=== PATIENT | female | born 1970 | race Caucasian/White ===

== ENCOUNTER 2017-09-18 21:25 | Emergency (ER) | payer OTHER ==
[2017-09-18 22:32] LABS: ADD MAN DIFF? NO
[2017-09-18 22:33] LABS: WHITE BLOOD COUNT 10.8 10^3/ul (4.8-10.8)
[2017-09-18 22:33] LABS: BASOPHIL # 0.1 10^3/ul (0.0-0.1); BASOPHILS % 0.5 % (0.0-2.0); EOSINOPHILS # 0.2 10^3/ul (0.0-0.5); EOSINOPHILS % 1.6 % (0.0-7.0); HEMATOCRIT 36.7 % (37.0-47.0); HEMOGLOBIN 11.6 g/dl (12.0-16.0); LYMPHOCYTES # 4.3 10^3/ul (0.8-2.9); LYMPHOCYTES % 39.2 % (15.0-51.0); MEAN CORPUSCULAR HEMOGLOBIN 25.6 pg (29.0-33.0); MEAN CORPUSCULAR HGB CONC 31.6 g/dl (32.0-37.0); MEAN CORPUSCULAR VOLUME 80.8 fl (82.0-101.0); MEAN PLATELET VOLUME 10.1 fl (7.4-10.4); MONOCYTE # 0.8 10^3/ul (0.3-0.9); MONOCYTES % 7.7 % (0.0-11.0); NEUTROPHIL # 5.5 10^3/ul (1.6-7.5); NEUTROPHILS % 50.8 % (39.0-77.0); PLATELET COUNT 293 10^3/UL (140-415); RED BLOOD COUNT 4.54 10^6/ul (4.20-5.40); RED CELL DISTRIBUTION WIDTH 14.6 % (11.5-14.5)
[2017-09-18] MEDS: ACETAMINOPHEN 500 MG TAB PO (22:35)
[2017-09-18 22:56] LABS: ALANINE AMINOTRANSFERASE 18 IU/L (13-69); ALBUMIN 4.4 g/dl (3.3-4.9); ALBUMIN/GLOBULIN RATIO 1.18; ALKALINE PHOSPHATASE 61 IU/L (42-121); ANION GAP 14 (8-16); ASPARTATE AMINO TRANSFERASE 18 IU/L (15-46); BILIRUBIN,INDIRECT 0.5 mg/dl (0-1.1); BILIRUBIN,TOTAL 0.5 mg/dl (0.2-1.3); BLOOD UREA NITROGEN 11 mg/dl (7-20); CALCIUM 9.4 mg/dl (8.4-10.2); CARBON DIOXIDE 29 mmol/L (21-31); CHLORIDE 104 mmol/L (97-110); CREATININE 0.55 mg/dl (0.44-1.00); GLUCOSE 131 mg/dl (70-220); POTASSIUM 3.2 mmol/L (3.5-5.1); SODIUM 144 mmol/L (135-144); TOTAL PROTEIN 8.1 g/dl (6.1-8.1)
== END 2017-09-19 00:47 | disposition home or self-care (01) ==
LOC: E/R 09-19 00:47
DX: I16.0 Hypertensive urgency (principal); I10 Essential (primary) hypertension
CPT/HCPCS: 36415; 70450; 80053; 85025; 99284-25

== ENCOUNTER 2018-08-10 16:20 | Emergency (ER) | payer SELFPAY, OTHER | END 2018-08-10 17:45 | disposition left against medical advice (07) | LOC: E/R 16:20 | DX: Z53.21 Procedure and treatment not carried out due to patient leaving prior to being seen by health care provider (principal) ==

== ENCOUNTER 2018-09-03 18:11 | Inpatient (IN) | payer OTHER ==
[2018-09-03] MEDS: ONDANSETRON 4 MG INJ IV ×2 (19:53→21:11)
[2018-09-03] MEDS: morphine 4 MG/ML VIAL IV (19:54)
[2018-09-03] MEDS: SOD CHLORIDE 0.9% 1,000 ML IV ×2 (19:54→23:09)
[2018-09-03 20:04] LABS: ADD MAN DIFF? NO
[2018-09-03 20:08] LABS: ADD UMIC YES; UR ASCORBIC ACID NEGATIVE (NEGATIVE); UR BILIRUBIN (Dip) NEGATIVE (NEGATIVE); UR BLOOD (Dip) 1+ mg/dL (NEGATIVE); UR CLARITY CLEAR (CLEAR); UR COLOR STRAW (YELLOW); UR GLUCOSE (Dip) NEGATIVE (NEGATIVE); UR KETONES (Dip) NEGATIVE (NEGATIVE); UR LEUKOCYTE ESTERASE (Dip) NEGATIVE Leu/ul (NEGATIVE); UR NITRITE (Dip) NEGATIVE (NEGATIVE); UR RBC 1 /HPF (0-5); UR SPECIFIC GRAVITY (Dip) 1.006 (1.003-1.030); UR SQUAMOUS EPITHELIAL CELL FEW /HPF (FEW); UR TOTAL PROTEIN (Dip) NEGATIVE (NEGATIVE); UR UROBILINOGEN (Dip) NEGATIVE (NEGATIVE); UR WBC 3 /HPF (0-5)
[2018-09-03 20:11] LABS: ABNORMAL IP MESSAGE 1; BASOPHIL # 0.1 10^3/ul (0.0-0.1); BASOPHILS % 0.5 % (0.0-2.0); EOSINOPHILS # 0.2 10^3/ul (0.0-0.5); EOSINOPHILS % 1.1 % (0.0-7.0); HEMATOCRIT 36.9 % (37.0-47.0); HEMOGLOBIN 11.8 g/dl (12.0-16.0); LYMPHOCYTES # 5.1 10^3/ul (0.8-2.9); LYMPHOCYTES % 34.6 % (15.0-51.0); MEAN CORPUSCULAR HEMOGLOBIN 27.3 pg (29.0-33.0); MEAN CORPUSCULAR VOLUME 85.2 fl (82.0-101.0); MEAN PLATELET VOLUME 9.7 fl (7.4-10.4); MONOCYTE # 0.9 10^3/ul (0.3-0.9); MONOCYTES % 6.2 % (0.0-11.0); NEUTROPHIL # 8.5 10^3/ul (1.6-7.5); NEUTROPHILS % 57.3 % (39.0-77.0); PLATELET COUNT 278 10^3/UL (140-415); RED BLOOD COUNT 4.33 10^6/ul (4.20-5.40); RED CELL DISTRIBUTION WIDTH 13.2 % (11.5-14.5)
[2018-09-03 20:11] LABS: WHITE BLOOD COUNT 14.8 10^3/ul (4.8-10.8)
[2018-09-03 20:13] LABS: POSITIVE DIFF @See below
[2018-09-03 20:26] LABS: ALANINE AMINOTRANSFERASE 25 IU/L (13-69); ALBUMIN 4.3 g/dl (3.3-4.9); ALBUMIN/GLOBULIN RATIO 1.22; ALKALINE PHOSPHATASE 57 IU/L (42-121); ANION GAP 8 (5-13); ASPARTATE AMINO TRANSFERASE 24 IU/L (15-46); BILIRUBIN,INDIRECT 0.6 mg/dl (0-1.1); BILIRUBIN,TOTAL 0.6 mg/dl (0.2-1.3); BLOOD UREA NITROGEN 14 mg/dl (7-20); CALCIUM 9.6 mg/dl (8.4-10.2); CARBON DIOXIDE 28 mmol/L (21-31); CHLORIDE 104 mmol/L (97-110); CREATININE 0.96 mg/dl (0.44-1.00); Estimated GFR > 60 mL/min (>60); GLUCOSE 108 mg/dl (70-220); LIPASE 77 U/L (23-300); POTASSIUM 3.5 mmol/L (3.5-5.1); SODIUM 140 mmol/L (135-144); TOTAL PROTEIN 7.8 g/dl (6.1-8.1)
[2018-09-03] MEDS: KETOROLAC 30 MG INJ IV (22:15)
[2018-09-03] MEDS: LORAZEPAM 2 MG INJ IV (22:15)
[2018-09-03] MEDS ORDERED: ONDANSETRON 4 MG INJ IV (23:00)
[2018-09-03] MEDS ORDERED: NACL 0.9% 3 ML SYG IV (23:00)
[2018-09-03] MEDS ORDERED: ACETAMINOPHEN 325 MG TAB PO (23:00)
[2018-09-03] MEDS: CIPROFLOXACIN 400MG/D5W 200 ML IVPB (23:08)
[2018-09-04] MEDS: SOD CHLORIDE 0.9% 1,000 ML IV ×2 (01:28→16:32)
[2018-09-04] MEDS: metroNIDAZOLE 500 MG/NS (PMX) 100 ML IVPB ×4 (01:29→17:14)
[2018-09-04] MEDS: morphine 2 MG INJ IV (04:52)
[2018-09-04] MEDS: ONDANSETRON 4 MG INJ IV ×2 (04:52→12:38)
[2018-09-04 04:54] LABS: ADD MAN DIFF? NO
[2018-09-04 05:02] LABS: BASOPHIL # 0.1 10^3/ul (0.0-0.1); BASOPHILS % 0.5 % (0.0-2.0); EOSINOPHILS # 0.1 10^3/ul (0.0-0.5); EOSINOPHILS % 1.1 % (0.0-7.0); HEMATOCRIT 33.6 % (37.0-47.0); HEMOGLOBIN 10.5 g/dl (12.0-16.0); LYMPHOCYTES # 3.8 10^3/ul (0.8-2.9); LYMPHOCYTES % 32.3 % (15.0-51.0); MEAN CORPUSCULAR HGB CONC 31.3 g/dl (32.0-37.0); MEAN CORPUSCULAR VOLUME 86.4 fl (82.0-101.0); MEAN PLATELET VOLUME 10.1 fl (7.4-10.4); MONOCYTE # 0.7 10^3/ul (0.3-0.9); MONOCYTES % 5.5 % (0.0-11.0); NEUTROPHIL # 7.2 10^3/ul (1.6-7.5); NEUTROPHILS % 60.2 % (39.0-77.0); PLATELET COUNT 252 10^3/UL (140-415); RED BLOOD COUNT 3.89 10^6/ul (4.20-5.40); RED CELL DISTRIBUTION WIDTH 13.5 % (11.5-14.5)
[2018-09-04 05:02] LABS: WHITE BLOOD COUNT 11.9 10^3/ul (4.8-10.8)
[2018-09-04 05:26] LABS: ALANINE AMINOTRANSFERASE 24 IU/L (13-69); ALBUMIN 3.3 g/dl (3.3-4.9); ALBUMIN/GLOBULIN RATIO 1.22; ALKALINE PHOSPHATASE 43 IU/L (42-121); ANION GAP 6 (5-13); ASPARTATE AMINO TRANSFERASE 19 IU/L (15-46); BILIRUBIN,INDIRECT 0.6 mg/dl (0-1.1); BILIRUBIN,TOTAL 0.6 mg/dl (0.2-1.3); BLOOD UREA NITROGEN 15 mg/dl (7-20); CALCIUM 8.3 mg/dl (8.4-10.2); CARBON DIOXIDE 27 mmol/L (21-31); CHLORIDE 108 mmol/L (97-110); CHOL/HDL RATIO 3.5 RATIO; CHOLESTEROL 152 mg/dl (100-200); CREATININE 0.69 mg/dl (0.44-1.00); Estimated GFR > 60 mL/min (>60); GLUCOSE 133 mg/dl (70-220); HDL CHOLESTEROL 43 mg/dl (34-88); LDL CHOLESTEROL,CALCULATED 85 mg/dl; MAGNESIUM 1.8 mg/dl (1.7-2.5); SODIUM 141 mmol/L (135-144); TRIGLYCERIDES 122 mg/dl (0-149)
[2018-09-04 07:08] LABS: HEMOGLOBIN A1C 6.3 % (0-5.9)
[2018-09-04] MEDS ORDERED: POLYETHYLENE GLYCOL 17 GM PACKET PO (10:00)
[2018-09-04] MEDS: DOCUSATE SODIUM 100 MG CAP PO (11:12)
[2018-09-04] MEDS: POLYETHYLENE GLYCOL 17 GM PACKET PO (11:12)
[2018-09-04] MEDS: CIPROFLOXACIN 400MG/D5W 200 ML IVPB ×2 (11:13→21:40)
[2018-09-04] MEDS ORDERED: LORATADINE 10 MG TAB PO ×2 (11:30→13:00)
[2018-09-04] MEDS ORDERED: ENALAPRIL 20 MG TAB PO (11:30)
[2018-09-04] MEDS ORDERED: HYDROCHLOROTHIAZIDE 12.5 MG CAP PO (12:00)
[2018-09-04] MEDS: PANTOPRAZOLE (EC) 40 MG TAB PO (12:38)
[2018-09-04] MEDS ORDERED: MINERAL OIL 133 ML ENEMA PR (16:30)
[2018-09-04] MEDS: BISACODYL 10 MG SUPP PR (16:31)
[2018-09-04] MEDS: LACTULOSE 30ML CUP PO (16:31)
[2018-09-04] MEDS: HYDROCHLOROTHIAZIDE 12.5 MG CAP PO (21:39)
[2018-09-04] MEDS: ENALAPRIL 20 MG TAB PO (21:40)
[2018-09-05] MEDS: metroNIDAZOLE 500 MG/NS (PMX) 100 ML IVPB ×4 (00:10→17:39)
[2018-09-05] MEDS: ACETAMINOPHEN 325 MG TAB PO (02:04)
[2018-09-05] MEDS: SOD CHLORIDE 0.9% 1,000 ML IV ×2 (04:18→05:20)
[2018-09-05] MEDS: PANTOPRAZOLE (EC) 40 MG TAB PO (05:21)
[2018-09-05 06:01] LABS: ADD MAN DIFF? NO
[2018-09-05 06:08] LABS: WHITE BLOOD COUNT 9.6 10^3/ul (4.8-10.8)
[2018-09-05 06:08] LABS: BASOPHIL # 0.1 10^3/ul (0.0-0.1); BASOPHILS % 0.6 % (0.0-2.0); EOSINOPHILS # 0.1 10^3/ul (0.0-0.5); EOSINOPHILS % 1.5 % (0.0-7.0); HEMATOCRIT 32.5 % (37.0-47.0); HEMOGLOBIN 10.2 g/dl (12.0-16.0); LYMPHOCYTES # 3.9 10^3/ul (0.8-2.9); LYMPHOCYTES % 40.9 % (15.0-51.0); MEAN CORPUSCULAR HEMOGLOBIN 26.9 pg (29.0-33.0); MEAN CORPUSCULAR HGB CONC 31.4 g/dl (32.0-37.0); MEAN CORPUSCULAR VOLUME 85.8 fl (82.0-101.0); MEAN PLATELET VOLUME 10.2 fl (7.4-10.4); MONOCYTE # 0.6 10^3/ul (0.3-0.9); MONOCYTES % 6.1 % (0.0-11.0); NEUTROPHIL # 4.9 10^3/ul (1.6-7.5); NEUTROPHILS % 50.6 % (39.0-77.0); PLATELET COUNT 238 10^3/UL (140-415); RED BLOOD COUNT 3.79 10^6/ul (4.20-5.40); RED CELL DISTRIBUTION WIDTH 13.5 % (11.5-14.5)
[2018-09-05] MEDS: DOCUSATE SODIUM 100 MG CAP PO (08:24)
[2018-09-05] MEDS: CIPROFLOXACIN 400MG/D5W 200 ML IVPB ×2 (08:24→20:52)
[2018-09-05] MEDS: POLYETHYLENE GLYCOL 17 GM PACKET PO (08:24)
[2018-09-05 14:45] LABS: ALANINE AMINOTRANSFERASE 21 IU/L (13-69); ALBUMIN 3.8 g/dl (3.3-4.9); ALBUMIN/GLOBULIN RATIO 1.18; ALKALINE PHOSPHATASE 35 IU/L (42-121); ANION GAP 5 (5-13); ASPARTATE AMINO TRANSFERASE 31 IU/L (15-46); BILIRUBIN,INDIRECT 0.7 mg/dl (0-1.1); BILIRUBIN,TOTAL 0.7 mg/dl (0.2-1.3); BLOOD UREA NITROGEN 6 mg/dl (7-20); CALCIUM 8.6 mg/dl (8.4-10.2); CARBON DIOXIDE 25 mmol/L (21-31); CHLORIDE 108 mmol/L (97-110); CREATININE 0.58 mg/dl (0.44-1.00); Estimated GFR > 60 mL/min (>60); GLUCOSE 109 mg/dl (70-220); POTASSIUM 3.9 mmol/L (3.5-5.1); SODIUM 138 mmol/L (135-144)
[2018-09-05] MEDS: ENALAPRIL 20 MG TAB PO (20:53)
[2018-09-05] MEDS: HYDROCHLOROTHIAZIDE 12.5 MG CAP PO (20:53)
[2018-09-06] MEDS: metroNIDAZOLE 500 MG/NS (PMX) 100 ML IVPB ×2 (00:35→05:42)
[2018-09-06] MEDS: SOD CHLORIDE 0.9% 1,000 ML IV ×3 (00:35→14:16)
[2018-09-06] MEDS: PANTOPRAZOLE (EC) 40 MG TAB PO (05:42)
[2018-09-06] MEDS: ACETAMINOPHEN 325 MG TAB PO (05:42)
[2018-09-06 06:19] LABS: ADD MAN DIFF? NO
[2018-09-06 06:24] LABS: BASOPHILS % 0.4 % (0.0-2.0); EOSINOPHILS # 0.1 10^3/ul (0.0-0.5); EOSINOPHILS % 1.3 % (0.0-7.0); HEMATOCRIT 33.7 % (37.0-47.0); HEMOGLOBIN 10.8 g/dl (12.0-16.0); LYMPHOCYTES # 3.9 10^3/ul (0.8-2.9); LYMPHOCYTES % 37.5 % (15.0-51.0); MEAN CORPUSCULAR HEMOGLOBIN 27.2 pg (29.0-33.0); MEAN CORPUSCULAR VOLUME 84.9 fl (82.0-101.0); MEAN PLATELET VOLUME 10.3 fl (7.4-10.4); MONOCYTE # 0.7 10^3/ul (0.3-0.9); MONOCYTES % 6.6 % (0.0-11.0); NEUTROPHIL # 5.6 10^3/ul (1.6-7.5); NEUTROPHILS % 53.9 % (39.0-77.0); PLATELET COUNT 254 10^3/UL (140-415); RED BLOOD COUNT 3.97 10^6/ul (4.20-5.40); RED CELL DISTRIBUTION WIDTH 13.2 % (11.5-14.5)
[2018-09-06 06:24] LABS: WHITE BLOOD COUNT 10.4 10^3/ul (4.8-10.8)
[2018-09-06] MEDS: CIPROFLOXACIN 400MG/D5W 200 ML IVPB (08:45)
[2018-09-06] MEDS: POLYETHYLENE GLYCOL 17 GM PACKET PO (08:45)
[2018-09-06] MEDS: metroNIDAZOLE 500 MG TAB PO (14:14)
[2018-09-06] MEDS: CIPROFLOXACIN 500 MG TAB PO (17:35)
[2018-09-07] MEDS ORDERED: ERGOCALCIFEROL 50,000 UNIT CAP PO (09:00)
== END 2018-09-06 17:43 | disposition home or self-care (01) | DRG 392 ==
LOC: PP2 22:32 → E/R 18:11
DX: K57.32 Diverticulitis of large intestine without perforation or abscess without bleeding (principal); I10 Essential (primary) hypertension; K59.00 Constipation, unspecified; E66.9 Obesity, unspecified; Z68.33 Body mass index [BMI] 33.0-33.9, adult
CPT/HCPCS: 74176; 80053; 80061; 81001; 81025; 83036; 83690; 83735; 84443; 85025; 93005; 96374; 96375; 96376; 99285-25

== ENCOUNTER 2019-01-11 06:03 | Day surgery (SDC) | payer OTHER ==
[2019-01-11] MEDS ORDERED: FENTAnyl 50 MCG/ML VIAL (09:15)
[2019-01-11] MEDS ORDERED: MIDAZOLAM 1 MG/ML 2 ML INJ ×3 (09:15)
== END 2019-01-11 13:59 | disposition home or self-care (01) ==
LOC: GIL 06:03
DX: R19.4 Change in bowel habit (principal); K64.8 Other hemorrhoids; K57.30 Diverticulosis of large intestine without perforation or abscess without bleeding; K44.9 Diaphragmatic hernia without obstruction or gangrene; K21.9 Gastro-esophageal reflux disease without esophagitis
CPT/HCPCS: 43239; 88305; 88312